=== PATIENT | female | born 1980 | race Caucasian/White ===

== ENCOUNTER 2017-11-26 18:27 | Emergency (ER) | payer OTHER ==
[~2017-11-26] VITALS: Ht 167.6 cm; Wt 131.5 kg
[~2017-11-26 18:27] MED LIST: ALBU90OI INH; ALPR.25 PO; AMIT25 PO; AMOCLA500 PO; BCPs; BENZ100A PO; BIRTH CONTROL; CEPH500 PO; CLIN300 PO; CYCL10 PO; Cipro500 MG PO; DAYQUIL; FLUO20; HYDACE5 PO; HYDACE5325 PO; HYDGUAL120 PO; HYDMOR2 PO; IBUP800; IBUP800 PO; LORA.5 PO; LORA10ER PO; LORPSEER12; MECL25 PO; METPRE4DP PO; MULTI VITAMIN DAILY; MULVITMINE; NAPR375 PO; NAPR500 PO; NYQUIL; Norco 5-325 Ta1 EACH PO; OXYACE5T PO; PRED20 PO; PRENZ; PROM25; PROM25 PO; Percocet 5-3251 EACH PO; RXALBOI INH; RXHYDACE PO; RXOXYACE PO; SERT100 PO; STOOL SOFTENER; SULTRIDS PO; ZAFI20; [UNRECOGNIZED DRUG - REMARK]
[2017-11-26 19:30] LABS: BASOPHILS ABSOLUTE AUTO 0.04 K/mm3 (0.00-0.23); BASOPHILS PERCENT AUTO 0 % (0-2); EOSINOPHILS ABSOLUTE AUTO 0.42 K/mm3 (0.00-0.68); EOSINOPHILS PERCENT AUTO 4 % (0-6); Hematocrit 38.3 % (33.0-51.0); Hemoglobin 12.5 g/dL (11.5-16.0); IMMATURE GRAN ABSOLUTE AUTO 0.03 K/mm3 (0.00-0.10); IMMATURE GRAN PERCENT AUTO 0 % (0-1); LYMPHOCYTES ABSOLUTE AUTO 3.27 K/mm3 (0.84-5.20); LYMPHOCYTES PERCENT AUTO 31 % (21-46); MONOCYTES ABSOLUTE AUTO 0.62 K/mm3 (0.16-1.47); MONOCYTES PERCENT AUTO 6 % (4-13); Mean Corpuscular HGB 29.8 pg (26.0-34.0); Mean Corpuscular HGB Conc 32.6 g/dL (31.5-36.5); Mean Corpuscular Volume 91 fL (80-100); Mean Platelet Volume 10.3 fL (9.1-12.4); NEUTROPHILS ABSOLUTE AUTO 6.11 K/mm3 (1.96-9.15); NEUTROPHILS PERCENT AUTO 58 % (41-73); Platelet Count 249 K/mm3 (150-400); RDW Coefficient Variation 13.1 % (11.7-14.2); RDW Standard Deviation 43.4 fL (35.1-46.3); White Blood Cell Count 10.49 K/mm3 (4.00-11.30)
[2017-11-26] MEDS ORDERED: DROSPIRENONE-E1 EACH PO (19:43)
[2017-11-26] MEDS ORDERED: AMIT10 PO (19:43)
[2017-11-26] MEDS ORDERED: LORATADINE10 MG PO (19:46)
[2017-11-26 19:47] LABS: Source, Urine Clean Catch
[2017-11-26 19:50] LABS: Bilirubin, Urine Neg (Neg); Blood, Urine Neg (Neg); Glucose Qualitative, Urine Neg (Neg); Ketones, Urine Neg (Neg); Leukocyte Esterase, Urine 1+ (Neg); Nitrite, Urine Neg (Neg); Protein, Urine Neg (Neg); Urobilinogen, Urine NORM (Normal)
[2017-11-26 19:53] LABS: Alanine Aminotransfer (ALT/SGP 14 U/L (12-78); Albumin/Globulin Ratio 0.7 (0.8-1.8); Alk Phos 104 U/L (50-136); Anion Gap 5 mmol/L (6-16); Aspartate Aminotrans (AST/SGOT 7 U/L (12-37); Bilirubin, Total 0.2 mg/dL (0.1-1.0); Blood Urea Nitrogen 14 mg/dL (8-24); Bun/Creatinine Ratio 17.6 (12.0-20.0); CO2, Blood 26 mmol/L (21-32); Calcium, Blood 8.8 mg/dL (8.5-10.1); Chloride, Blood 109 mmol/L (98-108); Globulin, Blood 4.1 g/dL (2.2-4.0); Glomerular Filtration Rate >60 (60-); Glucose, Blood 95 mg/dL (70-99); Sodium, Blood 140 mmol/L (136-145); Total Protein, Blood 7.1 g/dL (6.4-8.2)
[2017-11-26 20:02] LABS: Color, Urine Yellow (P-Yellow)
[2017-11-26 20:03] LABS: Appearance, Urine Hazy (Clear); Red Blood Cells, Urine Not Seen /hpf (0-2); White Blood Cells, Urine 0-2 /hpf (0-5)
[2017-11-26 20:05] LABS: Bacteria Few /hpf; Squamous Epithelial Cells Many /hpf (Few)
== END 2017-11-26 23:04 | disposition home or self-care (01) ==
LOC: ER 18:27
PROVIDERS: Emergency Medicine
DX: N83.202 Unspecified ovarian cyst, left side (principal); N83.201 Unspecified ovarian cyst, right side; Z88.5 Allergy status to narcotic agent; Z88.8 Allergy status to other drugs, medicaments and biological substances; Z79.899 Other long term (current) drug therapy; F17.210 Nicotine dependence, cigarettes, uncomplicated; J45.909 Unspecified asthma, uncomplicated; G43.909 Migraine, unspecified, not intractable, without status migrainosus; Z91.018 Allergy to other foods
CPT/HCPCS: 36415; 76830; 76856; 80053; 81001; 81025; 83690; 85025; 87086; 96374; 96375; 99284-25; J1885; J3010

== ENCOUNTER 2018-08-04 01:16 | Emergency (ER) | payer OTHER ==
[~2018-08-04] VITALS: Ht 167.6 cm; Wt 136.1 kg
[~2018-08-04 01:16] MED LIST changes: +AMIT10 PO; +DROSPIRENONE-E1 EACH PO; +LORATADINE10 MG PO
[2018-08-04] MEDS ORDERED: Percocet 5-3251 EACH PO (07:09)
[2018-08-04] MEDS ORDERED: MIRALAX17 GM PO (07:09)
[2018-08-04] MEDS ORDERED: Zofran8 MG PO (07:09)
== END 2018-08-04 07:27 | disposition home or self-care (01) ==
LOC: ER 01:16
DX: S42.141A Displaced fracture of glenoid cavity of scapula, right shoulder, initial encounter for closed fracture (principal); J45.909 Unspecified asthma, uncomplicated; F17.210 Nicotine dependence, cigarettes, uncomplicated; Z88.5 Allergy status to narcotic agent; Z88.8 Allergy status to other drugs, medicaments and biological substances; Z79.899 Other long term (current) drug therapy; W06.XXXA Fall from bed, initial encounter
CPT/HCPCS: 73030; 96372; 99283-25; J1170

== ENCOUNTER 2021-08-18 11:07 | Emergency (ER) | payer OTHER ==
[~2021-08-18] VITALS: Ht 167.6 cm; Wt 136.1 kg
[~2021-08-18 11:07] MED LIST changes: +MIRALAX17 GM PO; +Zofran8 MG PO
[2021-08-18] MEDS ORDERED: IBU800 MG PO (12:23)
[2021-08-18] MEDS ORDERED: HYDR1TAB94 PO (12:23)
[2021-08-18] MEDS ORDERED: ULTRA-LIGHT RO1 EACH MC (12:24)
== END 2021-08-18 12:50 | disposition home or self-care (01) ==
LOC: ER 11:07
DX: S93.402A Sprain of unspecified ligament of left ankle, initial encounter (principal); Z88.5 Allergy status to narcotic agent; G43.909 Migraine, unspecified, not intractable, without status migrainosus; Z79.899 Other long term (current) drug therapy; F17.210 Nicotine dependence, cigarettes, uncomplicated
CPT/HCPCS: 29515; 73610; 99283-25; A9270